=== PATIENT | male | born 1990 | race Caucasian/White ===

== ENCOUNTER 2021-04-13 09:21 | Emergency (ER) | payer OTHER ==
[~2021-04-13] VITALS: Ht 193 cm; Wt 120.2 kg
[2021-04-13 09:28] VITALS: BP 149/73
--- NOTE | 2021-04-13 09:30 | NUR ---
30 y/o male walked to ED bed 3, pt states he was at work today and piece of equipment (fiber glass arm) fell on left arm. pt has 10/10 in left arm, head injury and rib pain. denies loc, syncope. no hematoma visible, no lac or abrasions to face or head. sensations intact, <3 cap refill, pt is able to move all digits on left hand, unable to move extremity. pmh: denies nka med: ibuprofen 1200mg (no relief)
--- NOTE | 2021-04-13 09:33 | NUR ---
pt ambulated to bed 03 at this time
--- NOTE | 2021-04-13 09:50 | NUR ---
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
--- NOTE | 2021-04-13 10:15 | NUR ---
pt back from ct and xr, pt tolerated well.
[2021-04-13] MEDS ORDERED: NAPR-54 PO (10:45)
[2021-04-13] MEDS ORDERED: LID5T TP (10:45)
[2021-04-13 11:00] VITALS: BP 137/69
--- NOTE | 2021-04-13 11:15 | NUR ---
Patient discharged with v/s stable. Written and verbal after care instructions given and explained. Patient verbalized understanding. Ambulatory with steady gait. All questions addressed prior to discharge. Advised to follow up with PMD.
== END 2021-04-13 11:15 | disposition home or self-care (01) ==
LOC: MED 09:21
DX: S20.20XA Contusion of thorax, unspecified, initial encounter (principal); S09.90XA Unspecified injury of head, initial encounter; M25.512 Pain in left shoulder; W22.8XXA Striking against or struck by other objects, initial encounter; Y93.89 Activity, other specified; Y92.89 Other specified places as the place of occurrence of the external cause; Y99.8 Other external cause status
CPT/HCPCS: 70450; 71046; 73030; 73060; 99284